=== PATIENT | female | born 1935 | race Caucasian/White ===

== ENCOUNTER → 2016-12-28 | Outpatient (CLI) | payer OTHER ==
[~2016-12-28] MED LIST: KFL/250 PO; PRMUNK
[2016-12-28 13:29] LABS: BASO % 0.5 %; BASO ABS # 0.03 K/uL (0-0.2); COMPLETE YES; EOS % 1.4 %; HEMATOCRIT 41.1 % (37-47); IG% 0.2 %; LYMPH % 22.4 %; LYMPH ABS # 1.49 K/uL (1.2-3.4); MEAN CELL VOLUME 90.9 fL (80-100); MEAN CORPUSCULAR HEMOGLOBIN 31.6 pg (25-34); MEAN CORPUSCULAR HGB CONC 34.8 g/dl (32-36); MEAN PLATELET VOLUME 10.1 fL (7.4-10.4); MONO % 7.2 %; NEUT % 68.3 %; PLATELET COUNT 255 K/uL (130-400); RED BLOOD COUNT 4.52 M/uL (4.2-5.4); WHITE BLOOD COUNT 6.64 K/uL (4.8-10.8)
[2016-12-28 13:54] LABS: ALT/SGPT 25 U/L (12-78); AST/SGOT 21 U/L (15-37); BLOOD UREA NITROGEN 14 mg/dl (7-18); BUN/CREATININE RATIO 16.5 (10-20); CALCIUM 9.4 mg/dl (8.5-10.1); CARBON DIOXIDE 28 mmol/L (21-32); CHLORIDE 104 mmol/L (98-107); CREATININE 0.87 mg/dl (0.60-1.20); GLUCOSE 94 mg/dl (70-99); MAGNESIUM 2.3 mg/dl (1.8-2.4); POTASSIUM 4.6 mmol/L (3.5-5.1); SODIUM 139 mmol/L (136-145)
[2016-12-28 14:06] LABS: ALKALINE PHOSPHATASE 94 U/L (45-117)
== END | disposition home or self-care (01) ==
LOC: C.LABSPEC 12:35
PROVIDERS: ATTEND Internal Medicine
DX: I10 Essential (primary) hypertension (principal); R07.9 Chest pain, unspecified; R00.2 Palpitations

== ENCOUNTER → 2016-12-30 | Outpatient (CLI) | payer OTHER ==
--- NOTE | 2016-12-30 14:51 | EXERCISE STRESS ECHO ---
*NOTICE TO RECEIVING REPUBLICAN AGENCY This information is strictly Confidential and protected under [place] law. [place] law prohibits you from making any further disclosure of this information unless further disclosure is expressly permitted by the written consent of the person to whom it pertains or is authorized by law. A general authorization for the release of medical or other information is not sufficient for this purpose. Hospital accepts no responsibility if the information is made available to any other person, INCLUDING THE PATIENT. Interpretation Summary * Name: SANDRA RYAN Study Date: 12/30/2016 09:23 AM BP: 199/89 mmHg * Patient Location: [facility] HR: 56 * : 1935 (M/d/yyyy) Gender: Female Height: 61 in * Age: 81 yrs Ethnicity: [place] Weight: 124 lb * Referring Physician: LEÓN CARDOZA * Performed By: Meron Santiago RDCS * * Reason For Study: CHEST PAIN * BSA: 1.5 m2 * History: CHEST PAIN * The stress echocardiogram is negative for inducible ischemia. * The stress ECG response was normal * _ workload achieved. * Stress wall motion was normal. * -- Conclusions -- * 1. Negative stress echocardiogram at 84% MPHR. * 2. Negative ECG portion of exercise treadmill test. Baseline ECG was normal sinus rhythm with RBBBB. * 3. Appropriate HR and hypertensive BP response to exercise (resting BP 199/89, peak BP 234/82). * 4. No dysrhythmias. * 5. No symptoms. * 6. Poor exercise tolerance. NYHA Functional Class III. 4 MET workload. * 7. Resting echo with low normal systolic function, no regional wall motion abnormalities, and minor valvular regurgitation. Procedure Details * ECHOEX, CPT #71220 Left Ventricle * The left ventricle is normal in size. * There is normal left ventricular wall thickness. * Ejection Fraction = 50-55%. * Left ventricular systolic function is low normal. * There is borderline global hypokinesis of the left ventricle. * The left ventricular ejection fraction increases normally with stress. The left ventricular end-systolic cavity size reduces post-stress (normal response). The left ventricular wall motion with stress is normal. Right Ventricle * The right ventricle is normal in size and function. Atria * The left atrial size is normal. * Right atrial size is normal. * The interatrial septum is intact with no evidence for an atrial septal defect. Mitral Valve * The mitral valve is normal in structure and function. * There is mild mitral regurgitation. Tricuspid Valve * The tricuspid valve is normal in structure and function. * There is mild tricuspid regurgitation. * Right ventricular systolic pressure is normal. Aortic Valve * The aortic valve is normal in structure and function. * No aortic regurgitation is present. Pulmonic Valve * The pulmonic valve is not well seen, but is grossly normal. * Trace pulmonic valvular regurgitation. Great Vessels * The aortic root is normal size. * No obvious dissection could be visualized. * The pulmonary artery is normal size. Pericardium * There is no pericardial effusion. Stress Parameters * Rest heart rate was '56' BPM. * Rest blood pressure was '199/89' * Maximum heart rate achieved was 116 bpm. * Maximum heart rate was 84 % of maximum age-predicted heart rate. * Maximum blood pressure was '234/82' * Total exercise time was '2:31' * Maximum exercise MET level achieved was '4.60' METS * Maximum treadmill speed was '1.7' miles per hour. * Maximum treadmill elevation was '10.0'% grade. * Exercise was terminated due to 'FATIGUE' Left Ventricular Diastolic Function * Grade I diastolic dysfunction, (abnormal relaxation pattern). MMode 2D Measurements and Calculations IVSd 0.90 cm IVSs 1.3 cm LVIDd 4.5 cm LVIDs 3.2 cm LVPWd 0.96 cm LVPWs 1.6 cm IVS/LVPW 0.94 FS 29.0 % EDV(Teich) 94.1 ml ESV(Teich) 41.6 ml EF(Teich) 55.8 % EDV(cubed) 93.2 ml ESV(cubed) 33.4 ml EF(cubed) 64.1 % % IVS thick 43.7 % % LVPW thick 61.1 % LV mass(C)d 141.3 grams LV mass(C)dI 91.7 grams/m\S\2 LV mass(C)s 159.1 grams LV mass(C)sI 103.2 grams/m\S\2 SV(Teich) 52.5 ml SI(Teich) 34.0 ml/m\S\2 SV(cubed) 59.8 ml SI(cubed) 38.8 ml/m\S\2 Ao root diam 2.9 cm Ao root area 6.5 cm\S\2 LA dimension 3.2 cm LA/Ao 1.1 LVAd ap4 19.7 cm\S\2 LVLd ap4 6.8 cm EDV(MOD-sp4) 48.4 ml EDV(sp4-el) 48.6 ml LVAs ap4 12.8 cm\S\2 LVLs ap4 6.2 cm ESV(MOD-sp4) 25.6 ml ESV(sp4-el) 22.7 ml EF(MOD-sp4) 47.1 % EF(sp4-el) 53.2 % LVAd ap2 21.7 cm\S\2 LVLd ap2 7.1 cm EDV(MOD-sp2) 56.2 ml EDV(sp2-el) 56.4 ml LVAs ap2 14.3 cm\S\2 LVLs ap2 6.2 cm ESV(MOD-sp2) 29.2 ml ESV(sp2-el) 28.0 ml EF(MOD-sp2) 48.0 % EF(sp2-el) 50.4 % LVLd %diff 4.0 % EDV(MOD-bp) 53.1 ml LVLs %diff 1.3 % ESV(MOD-bp) 27.6 ml EF(MOD-bp) 48.1 % SV(MOD-sp4) 22.8 ml SI(MOD-sp4) 14.8 ml/m\S\2 SV(MOD-sp2) 27.0 ml SI(MOD-sp2) 17.5 ml/m\S\2 SV(MOD-bp) 25.6 ml SI(MOD-bp) 16.6 ml/m\S\2 SV(sp4-el) 25.8 ml SI(sp4-el) 16.8 ml/m\S\2 SV(sp2-el) 28.4 ml SI(sp2-el) 18.4 ml/m\S\2 Doppler Measurements and Calculations MV E max leilani 64.7 cm/sec MV A max leilani 80.9 cm/sec MV E/A 0.80 MV dec time 0.18 sec Ao V2 max 131.9 cm/sec Ao max PG 7.0 mmHg Ao max PG (full) 5.2 mmHg LV V1 max PG 1.7 mmHg LV V1 max 66.1 cm/sec TR max leilani 225.6 cm/sec
== END | disposition home or self-care (01) ==
LOC: C.CPL 08:53
PROVIDERS: ATTEND Internal Medicine
DX: R07.9 Chest pain, unspecified (principal)

== ENCOUNTER → 2017-02-22 | Outpatient (CLI) | payer OTHER ==
[~2017-02-22] MED LIST changes: +OPTIRAY 320 IV PRN
--- NOTE | 2017-02-22 13:59 | DIAGNOSTIC IMAGING REPORT ---
CT SOFT TISSUE NECK COMBO CT DOSE: 808.42 mGy.cm CLINICAL HISTORY: K11.20 Sialoadenitis TECHNIQUE: Unenhanced images were obtained through the duct. The study was then repeated in a dynamic helical fashion during intravenous administration of 119 cc Optiray 320. COMPARISON STUDY: May 2009 FINDINGS: Extra-axial calcifications in the right frontal region, are likely benign. 2 calculi are visualized within the right submandibular duct measuring 12 mm and 3 mm respectively. Postcontrast images reveal no orbital masses. There is mild mucosal thickening within the sphenoid. No parotid gland masses are visualized. There is right-sided mandibular gland hyperemia and edema, consistent with a sialoadenitis. The lung apices are unremarkable in appearance. No thyroid gland masses are visualized. No mucosal space masses are visualized. There is no pathologic adenopathy. There are no fluid collections to indicate an abscess. IMPRESSION: 1. Right submandibular gland hyperemia and edema, consistent with a sialoadenitis 2. Right-sided submandibular duct calculi are visualized measuring 12 mm and 3 mm respectively Electronically signed by: Heraclio Kerr M.D. 02/22/2017 1:58 PM Dictated Date/Time: 02/22/2017 1:51 PM
== END | disposition home or self-care (01) ==
LOC: C.CTS 13:30
DX: K11.20 Sialoadenitis, unspecified (principal); K11.5 Sialolithiasis

== ENCOUNTER → 2017-04-05 | Outpatient (CLI) | payer OTHER ==
[~2017-04-05] MED LIST changes: +ALPR0.25 PO; +AMOX875T PO; +CHOL1000 PO; +CYAN10005 PO; +MULT-506 PO; -OPTIRAY 320 IV PRN; +PROB1TAB16 PO; +[UNRECOGNIZED DRUG - CODE] PO
[2017-04-05 11:57] LABS: BLOOD UREA NITROGEN 11 mg/dl (7-18); CREATININE 0.73 mg/dl (0.60-1.20)
== END | disposition home or self-care (01) ==
LOC: C.LAB 10:16
DX: R19.7 Diarrhea, unspecified (principal); K12.2 Cellulitis and abscess of mouth

== ENCOUNTER → 2017-04-07 | Outpatient (CLI) | payer OTHER ==
[2017-04-07 18:02] LABS: BASO % 0.6 %; BASO ABS # 0.04 K/uL (0-0.2); COMPLETE YES; EOS % 2.9 %; HEMATOCRIT 41.1 % (37-47); IG% 0.2 %; LYMPH % 21.5 %; LYMPH ABS # 1.34 K/uL (1.2-3.4); MEAN CELL VOLUME 90.3 fL (80-100); MEAN CORPUSCULAR HEMOGLOBIN 30.3 pg (25-34); MEAN CORPUSCULAR HGB CONC 33.6 g/dl (32-36); MEAN PLATELET VOLUME 9.1 fL (7.4-10.4); NEUT % 64.8 %; PLATELET COUNT 373 K/uL (130-400); RED BLOOD COUNT 4.55 M/uL (4.2-5.4); WHITE BLOOD COUNT 6.23 K/uL (4.8-10.8)
[2017-04-07 19:10] LABS: ALT/SGPT 22 U/L (12-78); AST/SGOT 19 U/L (15-37); BLOOD UREA NITROGEN 14 mg/dl (7-18); BUN/CREATININE RATIO 18.1 (10-20); CALCIUM 8.9 mg/dl (8.5-10.1); CARBON DIOXIDE 26 mmol/L (21-32); CHLORIDE 97 mmol/L (98-107); GLUCOSE 87 mg/dl (70-99); POTASSIUM 4.2 mmol/L (3.5-5.1); SODIUM 131 mmol/L (136-145)
[2017-04-07 19:21] LABS: ALB/GLOB RATIO 0.9 (0.9-2); ALKALINE PHOSPHATASE 86 U/L (45-117)
== END | disposition home or self-care (01) ==
LOC: C.LABSPEC 17:33
PROVIDERS: ATTEND Internal Medicine
DX: R53.83 Other fatigue (principal); R63.4 Abnormal weight loss

== ENCOUNTER → 2017-06-07 | Outpatient (CLI) | payer OTHER ==
[~2017-06-07] MED LIST changes: -ALPR0.25 PO; -AMOX875T PO; -CHOL1000 PO; -CYAN10005 PO; -MULT-506 PO; -PROB1TAB16 PO; -[UNRECOGNIZED DRUG - CODE] PO
[2017-06-07 14:01] LABS: CHOLESTEROL 218 mg/dl (0-200); CHOLESTEROL/HDL RATIO 3.1; HDL CHOLESTEROL 71 mg/dl; TRIGLYCERIDES 83 mg/dl (0-150); VERY LOW DENSITY LIPOPROT CALC 17 mg/dl
== END | disposition home or self-care (01) ==
LOC: C.LABSPEC 12:17
PROVIDERS: ATTEND Internal Medicine
DX: E78.5 Hyperlipidemia, unspecified (principal); E55.9 Vitamin D deficiency, unspecified

== ENCOUNTER → 2017-07-18 | Outpatient (CLI) | payer OTHER | END | disposition home or self-care (01) | LOC: C.LABSPEC 15:01 | PROVIDERS: ATTEND Internal Medicine | DX: Z12.11 Encounter for screening for malignant neoplasm of colon (principal) ==

== ENCOUNTER → 2017-09-18 | Outpatient (CLI) | payer OTHER ==
[~2017-09-18] MED LIST changes: +ALPR0.25 PO; +AMOX875T PO; +CHOL1000 PO; +CYAN10005 PO; +MULT-506 PO; +PROB1TAB16 PO; +[UNRECOGNIZED DRUG - CODE] PO
== END | disposition home or self-care (01) ==
LOC: C.LABSPEC 18:08
PROVIDERS: ATTEND Physician Assistant
DX: K11.5 Sialolithiasis (principal)

== ENCOUNTER → 2017-09-18 | Outpatient (CLI) | payer OTHER ==
[2017-09-18 16:39] LABS: BASO % 0.4 %; BASO ABS # 0.03 K/uL (0-0.2); COMPLETE YES; HEMATOCRIT 39.3 % (37-47); IG% 0.3 %; LYMPH % 20.3 %; LYMPH ABS # 1.61 K/uL (1.2-3.4); MEAN CELL VOLUME 90.8 fL (80-100); MEAN CORPUSCULAR HEMOGLOBIN 30.3 pg (25-34); MEAN CORPUSCULAR HGB CONC 33.3 g/dl (32-36); MEAN PLATELET VOLUME 9.4 fL (7.4-10.4); MONO % 6.3 %; NEUT % 70.7 %; PLATELET COUNT 264 K/uL (130-400); RED BLOOD COUNT 4.33 M/uL (4.2-5.4); WHITE BLOOD COUNT 7.95 K/uL (4.8-10.8)
[2017-09-18 16:53] LABS: PARTIAL THROMBOPLASTIN RATIO 1.1; PROTHROMBIN TIME (PATIENT) 10.7 SECONDS (9.0-12.0)
[2017-09-18 17:01] LABS: POTASSIUM 3.9 mmol/L (3.5-5.1)
== END | disposition home or self-care (01) ==
LOC: C.LAB 16:02
PROVIDERS: ATTEND Physician Assistant
DX: Z01.818 Encounter for other preprocedural examination (principal)

== ENCOUNTER → 2017-09-22 | Day surgery (SDC) | payer OTHER ==
[2017-09-20 07:39] VITALS: Ht 152.4 cm; Wt 54.5 kg
[~2017-09-22] VITALS: Ht 152.4 cm; Wt 54.5 kg
[~2017-09-22] MED LIST changes: +ATROPINE SULFATE 0.1 MG/ML 5ML SYR IV PRN; +CLINDAMYCIN 600 MG/54 ML D5W IV SCH; +CLINDAMYCIN 600MG IV SCH; +CLINDAMYCIN PO SCH; +DEXAMETHASONE SOD INJ 4 MG/ML VIAL ONE; +EpHEDrine SULFATE INJ 50 MG/ML AMP IV PRN; +EpHEDrine SULFATE INJ 50 MG/ML AMP ONE; +FENTANYL CITRATE INJ 50 MCG/1 ML 2 ML VIAL IV PRN; +FENTANYL CITRATE INJ 50 MCG/1 ML 2 ML VIAL ONE; +HYDROCODONE/APAP 2.5MG/108MG ELIX 5 ML UDP PO PRN; -KFL/250 PO; +LACTATED RINGER'S 1000ML 1,000 ML IV SCH; +LIDOCAINE HCL 2% 2 ML VIAL (20MG/ML) ONE; +LIDOCAINE/EPINEPHRINE 1% INJ 50 ML VIAL ONE; +MIDAZOLAM HCL 1 MG/ML 2ML VIAL ONE; +NURSING VERBAL MED ORDER ONE; +ONDANSETRON INJ 2 MG/ML 2 ML VIAL IV PRN; +ONDANSETRON INJ 2 MG/ML 2 ML VIAL ONE; -PRMUNK; +PROPOFOL IV EMULSION 10 MG/ML 20 ML VIAL IV ONE; +SODIUM CHLORIDE 0.9% PO SCH
--- NOTE | 2017-09-22 08:00 | History & Physical Bridge - SC ---
H&P Re-Evaluation Bridge Note: I have examined the patient, reviewed the History & Physical and in the interval since the performance of the History & Physical I have noted the following changes of clinical significance: No changes noted
--- NOTE | 2017-09-22 09:57 | [facility] Operative Report ---
Operative Report Operative Date Sep 22, 2017. Pre-Operative Diagnosis Sialoadenitis; Sialolithiasis of Submandibular Gland Post-Operative Diagnosis Same Procedure(s) Performed Right Submandibular Duct Stone Removal Surgeon Dr. Gudino Forest Engineer Surgeon(s) None Estimated Blood Loss 5 mL Findings 1. VERY LARGE EMBEDDED RIGHT SUBMANDIBULAR DUCT STONE IN THE MID-DUCT REGION WITH SURROUNDING INFLAMMATION AND FIBROSIS - ~1.2CM IN DIAMETER Specimens A. Right Submandibular Duct Stones I attest to the content of the Intraoperative Record and any orders documented therein. Any exceptions are noted below.
--- NOTE | 2017-09-22 10:00 | Discharge Instructions ---
Discharge Instructions Date of Service Sep 22, 2017. Admission Reason for Admission: Sialolithiasis Of Submandibular Gland Discharge Discharge Diagnosis / Problem: SAME Discharge Goals Goal(s): Therapeutic intervention Activity Recommendations Activity Limitations: as noted below LIGHT ACTIVITY FOR 72HRS; NO DRIVING WHILE ON NORCO . Current Hospital Diet Patient's current hospital diet: Regular Diet Discharge Diet Recommended Diet: Regular Diet Procedures Procedures Performed: Right Submandibular Duct Stone Removal Pending Studies Studies pending at discharge: no Medical Emergencies . Who to Call and When: Medical Emergencies: If at any time you feel your situation is an emergency, please call 911 immediately. . Non-Emergent Contact Non-Emergency issues call your: Surgeon . . "Provider Documentation" section prepared by Feliz Gudino. . VTE Core Measure Inpt VTE Proph given/why not?: SCD's
--- NOTE | 2017-09-22 10:26 | OPERATIVE REPORT ---
DATE OF OPERATION: 09/22/2017 PREOPERATIVE DIAGNOSES: 1. Right submandibular duct stone. 2. Right submandibular gland sialoadenitis. POSTOPERATIVE DIAGNOSES: 1. Right submandibular duct stone. 2. Right submandibular gland sialoadenitis. PROCEDURE: Right submandibular duct stone extraction via sialolithotomy. SURGEON: Dr. Feliz Gudino. ANESTHESIA: General endotracheal. ESTIMATED BLOOD LOSS: 5 mL. FINDINGS: Large approximately 1.2-cm right submandibular duct stone located in the mid portion of the duct with severe surrounding inflammation and fibrosis. SPECIMENS: Right submandibular duct stones for permanent pathological assessment. DRAINS: None. COMPLICATIONS: None. INDICATIONS FOR THE PROCEDURE: The patient is an 82-year-old female with a history of recurrent right submandibular gland sialoadenitis, who first saw me in January and was found to have right submandibular gland sialoadenitis, but also a right submandibular duct stone. A CT scan showed that there were 2 stones with one being approximately 1 cm and a smaller stone more proximal to the gland. I had highly recommended right submandibular duct stone extraction and possible marsupialization of the duct in January/February, but the patient refused surgery. She has had recurrent infections ever since and has been seen in our office numerous times. She is finally convinced that she needs something surgically done. The options including sialendoscopy versus right submandibular duct stone extraction versus right submandibular gland excision were discussed with the patient and she opted for right submandibular duct stone extraction and possible duct marsupialization. She presents for the above-mentioned procedure on an outpatient elective basis. DESCRIPTION OF PROCEDURE: After informed consent had been obtained from the patient, the patient was wheeled to the operating room and placed on the operating table in the supine position. Monitors were placed. After induction of general endotracheal anesthesia, the patient was prepped in the usual fashion for oral surgery. A bite block was placed into the right maxillary dentition and an old silk suture was placed into the dorsum of the tongue and used for retraction during the case. 1 mL of 1% lidocaine with 1:100,000 epinephrine was then used to inject the mucosa and submucosa overlying the right floor of mouth region. Lacrimal probes were used to dilate the right submandibular duct and an attempt to try to milk out the stone was undertaken after dilating from #[address] way up to a #8 lacrimal probe. Despite that, the stone could not be manually expressed. Therefore, a #7 lacrimal probe was placed into the right submandibular duct and a #15 scalpel was used to incise the mucosa and submucosa down to the level of the submandibular duct and a sialolithotomy was performed over the submandibular duct in the mid portion and the floor of mouth overlying the stone. Immediately, the anterior aspect of the stone was identified. Care was taken to try to remove the stone in 1 piece, but this was literally impossible as the stone was quite large, measuring approximately 1.2 cm in diameter and having a lot of surrounding inflammation and fibrosis given that it was there at least 7 months. It was therefore removed in a piecemeal fashion using a combination of otologic cup forceps and suction. Eventually all the stone was removed and the posterior half of this was removed in its entirety using a blunt right angle pick. After removal of the 1.2-cm stone, care was taken to look for other stones. There may have been some small stones more proximal that were milked out using glandular massage and suction. After removal of all the stone material, the right submandibular duct was cannulated with an 18-gauge catheter and irrigated with clindamycin antibiotic irrigation. This was done copiously. The decision was made not to perform a submandibular duct stone marsupialization given the severe surrounding inflammatory tissue. The submandibular duct was reapproximated carefully using several deep 4-0 chromic sutures. The floor of mouth mucosal incision was then closed with several simple interrupted 4-0 chromic sutures. This marked the end of the case. The patient tolerated the procedure well and there were no apparent complications. An orogastric tube was placed and the stomach was suctioned free of any stomach contents. All the instrumentation was removed from the patient. The patient was extubated and transferred to recovery room in stable condition. I attest to the content of the Intraoperative Record and any orders documented therein. Any exception s are noted below.
[2017-09-22 10:52] VITALS: TEMP 36.4
--- NOTE | 2017-09-22 11:01 | Anesthesiology Progress Note ---
Anesthesia Post Op Note Date & Time Sep 22, 2017 at 11:01 Vital Signs Pain Intensity: 0 Vital Signs Past 12 Hours Date Time Temp Pulse Resp B/P (MAP) Pulse Ox O2 Delivery O2 Flow Rate FiO2 09/22/17 10:41 94 14 149/96 (116) 98 09/22/17 10:41 36.4 94 14 09/22/17 10:37 176/69 (106) 09/22/17 10:36 94 19 165/127 (132) 94 09/22/17 10:36 95 19 09/22/17 10:31 96 20 183/68 (94) 97 09/22/17 10:31 96 20 09/22/17 10:30 Room Air 09/22/17 10:27 174/72 (101) 09/22/17 10:26 96 13 09/22/17 10:26 96 13 174/72 (101) 99 09/22/17 10:21 98 17 09/22/17 10:21 97 17 179/71 (96) 99 09/22/17 10:16 98 15 168/66 (92) 99 09/22/17 10:16 98 15 09/22/17 10:11 98 17 09/22/17 10:11 98 17 168/78 (106) 99 09/22/17 10:09 167/77 (122) 09/22/17 10:07 36.5 98 16 167/77 99 Diffusion Mask 5 09/22/17 07:02 36.8 81 18 175/75 (108) 95 Room Air Notes Mental Status: alert / awake / arousable, participated in evaluation Pt Amnestic to Procedure: Yes Nausea / Vomiting: adequately controlled Pain: adequately controlled Airway Patency, RR, SpO2: stable & adequate BP & HR: stable & adequate Hydration State: stable & adequate Anesthetic Complications: no major complications apparent
[2017-09-22 11:33] VITALS: BP 179/93; PULSE 89; O2SAT 96
== END | disposition home or self-care (01) ==
LOC: X.SURG 06:43
DX: K11.5 Sialolithiasis (principal); I10 Essential (primary) hypertension; H90.5 Unspecified sensorineural hearing loss; Z79.899 Other long term (current) drug therapy

== ENCOUNTER → 2018-03-01 | Outpatient (CLI) | payer OTHER ==
[~2018-03-01] MED LIST changes: -ATROPINE SULFATE 0.1 MG/ML 5ML SYR IV PRN; -CLINDAMYCIN 600 MG/54 ML D5W IV SCH; -CLINDAMYCIN 600MG IV SCH; -CLINDAMYCIN PO SCH; -DEXAMETHASONE SOD INJ 4 MG/ML VIAL ONE; -EpHEDrine SULFATE INJ 50 MG/ML AMP IV PRN; -EpHEDrine SULFATE INJ 50 MG/ML AMP ONE; -FENTANYL CITRATE INJ 50 MCG/1 ML 2 ML VIAL IV PRN; -FENTANYL CITRATE INJ 50 MCG/1 ML 2 ML VIAL ONE; -HYDROCODONE/APAP 2.5MG/108MG ELIX 5 ML UDP PO PRN; -LACTATED RINGER'S 1000ML 1,000 ML IV SCH; -LIDOCAINE HCL 2% 2 ML VIAL (20MG/ML) ONE; -LIDOCAINE/EPINEPHRINE 1% INJ 50 ML VIAL ONE; -MIDAZOLAM HCL 1 MG/ML 2ML VIAL ONE; -NURSING VERBAL MED ORDER ONE; -ONDANSETRON INJ 2 MG/ML 2 ML VIAL IV PRN; -ONDANSETRON INJ 2 MG/ML 2 ML VIAL ONE; -PROPOFOL IV EMULSION 10 MG/ML 20 ML VIAL IV ONE; -SODIUM CHLORIDE 0.9% PO SCH
[2018-03-01 17:41] LABS: BASO % 0.4 %; BASO ABS # 0.03 K/uL (0-0.2); EOS % 0.6 %; EOS ABS # 0.04 K/uL (0-0.5); HEMATOCRIT 39.5 % (37-47); HEMOGLOBIN 13.7 g/dL (12.0-16.0); IG# 0.01 K/uL (0.00-0.02); LYMPH % 18.7 %; LYMPH ABS # 1.31 K/uL (1.2-3.4); MEAN CELL VOLUME 90.2 fL (80-100); MEAN CORPUSCULAR HEMOGLOBIN 31.3 pg (25-34); MEAN CORPUSCULAR HGB CONC 34.7 g/dl (32-36); MEAN PLATELET VOLUME 9.5 fL (7.4-10.4); MONO % 8.2 %; MONO ABS # 0.57 K/uL (0.11-0.59); NEUT ABS # 5.03 K/uL (1.4-6.5); PLATELET COUNT 290 K/uL (130-400); RED CELL DISTRIBUTION WIDTH CV 13.7 % (11.5-14.5); RED CELL DISTRIBUTION WIDTH SD 45.2 fL (36.4-46.3); WHITE BLOOD COUNT 6.99 K/uL (4.8-10.8)
[2018-03-01 17:47] LABS: ALBUMIN 3.5 gm/dl (3.4-5.0); ALT/SGPT 22 U/L (12-78); BLOOD UREA NITROGEN 12 mg/dl (7-18); CALCIUM 8.9 mg/dl (8.5-10.1); CARBON DIOXIDE 26 mmol/L (21-32); CREATININE 0.81 mg/dl (0.60-1.20); GLUCOSE 92 mg/dl (70-99); POTASSIUM 4.3 mmol/L (3.5-5.1); SODIUM 132 mmol/L (136-145)
[2018-03-01 17:50] LABS: ALKALINE PHOSPHATASE 78 U/L (45-117); AST/SGOT 18 U/L (15-37); TOTAL PROTEIN 7.4 gm/dl (6.4-8.2)
== END | disposition home or self-care (01) ==
LOC: C.LABSPEC 16:40
PROVIDERS: ATTEND Internal Medicine
DX: R07.9 Chest pain, unspecified (principal); R13.10 Dysphagia, unspecified

== ENCOUNTER → 2018-03-05 | Outpatient (CLI) | payer OTHER ==
--- NOTE | 2018-03-05 11:04 | DIAGNOSTIC IMAGING REPORT ---
(BARIUM SWALLOW) ESOPHAGUS CLINICAL HISTORY: DYSPHAGIA COMPARISON STUDY: Neck CT 02/22/2017. FLUOROSCOPY TIME: 1.8 minutes. 26 images submitted. FINDINGS: Focal area of mild to moderate narrowing within the proximal esophagus best seen on image 1. This measures approximately 5 cm in length. The mid to distal esophagus is normal in course and caliber. Tiny hiatus hernia. No gastroesophageal reflux. The contours of the hypopharynx are within normal limits. The barium tablet passed without difficulty. 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 Endoscopy is recommended to exclude an esophageal mass versus benign stricture. These findings were called/faxed to the referring physician's office. Electronically signed by: Dion Guevara M.D. 03/05/2018 11:03 AM Dictated Date/Time: 03/05/2018 11:00 AM
== END | disposition home or self-care (01) ==
LOC: C.RAD 10:17
PROVIDERS: ATTEND Internal Medicine
DX: R13.10 Dysphagia, unspecified (principal)

== ENCOUNTER → 2018-07-03 | Outpatient (CLI) | payer OTHER | END | disposition home or self-care (01) | LOC: C.MAMM 14:06 | PROVIDERS: ATTEND Internal Medicine | DX: M85.88 Other specified disorders of bone density and structure, other site (principal) ==

== ENCOUNTER 2019-12-07 13:22 | Inpatient (IN) ==
[2019-12-07] MEDS ORDERED: ONDANSETRON INJ 2 MG/ML 2 ML VIAL IV STA (13:47)
[2019-12-07] MEDS ORDERED: SODIUM CHLORIDE 0.9% 500 ML IV SCH (14:00)
[2019-12-07 14:08] LABS: Basophils # (auto) 0.01 K/uL (0-0.2); Basophils % (auto) 0.1 %; Eosinophils # (auto) 0.08 K/uL (0-0.5); Eosinophils % (auto) 1.1 %; Immature Granulocytes # (auto) 0.01 K/uL (0.00-0.02); Immature Granulocytes % (auto) 0.1 %; Lymphocytes # (auto) 1.62 K/uL (1.2-3.4); Lymphocytes % (auto) 22.8 %; Mean Corpuscular Hgb Conc 35.9 g/dL (32-36); Mean Platelet Volume 9.7 fL (7.4-10.4); Monocytes # (auto) 0.66 K/uL (0.11-0.59); Monocytes % (auto) 9.3 %; Neutrophils # (auto) 4.72 K/uL (1.4-6.5); Neutrophils % (auto) 66.6 %; Platelet Count 284 K/uL (130-400); RDW Standard Deviation 42.3 fL (36.4-46.3); Red Blood Count 4.38 M/uL (4.2-5.4)
--- NOTE | 2019-12-07 14:17 | Emergency Department Note ---
Entered by James Joseph acting as a scribe for History of Present Illness General Chief complaint: Hypertension Stated complaint: ELEVATED BP, BLOATED ABDOMEN, TOP OF HEAD TIGHT Time Seen by Provider: 12/07/19 13:30 Source: patient Limitations: no limitations History of Present Illness Onset (ago): day(s) (today) Location: head Severity: similar to prior episodes Pain Consistency: + constant Maximum Pain Intensity: 4 Quality: + constant Associated symptoms: + denies other symptoms (burning with urination, blood in urine, numbness, ); no chest pain, no fever/chills (fevers) and no weakness The patient is a 84 year old female who presents to the Emergency Room with complaints of constant hypertension starting today. The patient's granddaughter notes the patient went to see her PCP two days ago and her PCP gave her anxiety and BP medications. The patient states she had a loose bowel movement today. She states she feels nauseous and lightheaded right now. She states she feels pressure in her head. She states she feels anxious all the time. The patient denies fevers, falls, chest pain, numbness, weakness, burning with urination, blood in urine, thyroid problems, and cardiac history. The patient notes her PCP is Dr. Billie Carroll. Home Medications Home Medications Medication Instructions Recorded Confirmed Type cholecalciferol (vitamin D3) 2,000 unit PO QAM 04/28/19 12/07/19 History [Vitamin D3] coenzyme Q10 [CoQ-10] 100 mg PO QAM 04/28/19 12/07/19 History cyanocobalamin (vitamin B-12) 1,000 mcg PO QAM 04/28/19 12/07/19 History [Vitamin B-12] metoprolol tartrate 25 mg PO BID 04/28/19 12/07/19 History multivitamin 1 tab PO QAM 04/28/19 12/07/19 History amlodipine 5 mg PO QAM 12/07/19 12/07/19 History Allergies Allergy/AdvReac Type Severity Reaction Status Date / Time No Known Allergies Allergy Verified 12/07/19 14:32 Past Med/Surg History Medical History Fall Hypertension Family History Other Family history non-contributory Social History Preferred Language: Frisian Feels Safe at Home: Yes Smoking Status: Never smoker Review of Systems See HPI for pertinent positives & negatives. and A total of 10 systems reviewed and were otherwise negative Physical Exam Vital Signs Vital Signs - 24 hr 12/07/19 13:24 12/07/19 15:22 Temperature 37.1 C Temperature Source Oral Pulse Rate 70 Pulse Rate [Apical] 73 Pulse Rhythm [Apical] Regular Pulse Strength [Apical] Normal Respiratory Rate 20 17 Respiratory Effort / Characteristics Non-Labored Spontaneous Non-Labored Spontaneous Respiratory Depth Normal Normal Respiratory Pattern Regular Regular Blood Pressure 199/88 H Blood Pressure [Right Arm] 157/128 H Blood Pressure Mean 125 Blood Pressure Mean [Right Arm] 137 Blood Pressure Position Sitting Pulse Oximetry 95 97 Oxygen Delivery Method Room Air Room Air Sepsis Recent Fever Within 48 Hours No Sepsis New/Unexplained Change in Mental Status No Sepsis Action Taken by Nursing No Action Required General: Mildly anxious appearing older female in no acute distress. HEENT: Normal cephalic atraumatic. Pupils are equal round and reactive to light. Extraocular movements are intact. Oropharynx is pink with moist mucous membranes. No swelling of the mouth lips or tongue. Neck: Supple with a midline trachea. No meningeal signs or stiffness, no JVD or bruits. No Stridor. Chest: Clear to auscultation bilaterally. No wheezes or rhonchi. No increased work of breathing. Heart: regular rate and rhythm. Abdomen: Soft nontender, nondistended without rebound guarding or rigidity. Extremities: No cyanosis clubbing or edema. No calf tenderness or asymmetry Spine/Back. Non tender to palpation. No CVA tenderness Skin: Good turgor without rashes. Neurologic exam: Cranial nerves two through 12 are intact. Motor and sensation are intact and symmetrical throughout. No tremor. Course Course 1332: The patient was evaluated in room A9B, and a complete history and physical examination were performed. 1504: I discussed the patient's case with Angel Clark PA-C. Dr. Kc - [facility] will evaluate the patient for further management. Administered Medications Discontinued Medications Sodium Chloride (Nss) 500 mls @ 999 mls/hr IV .Q31M DANNI Stop: 12/07/19 14:30 Last Admin: 12/07/19 14:10 Dose: 999 mls/hr Documented by: [id number] Ondansetron HCl (Zofran) 4 mg IV NOW STA Stop: 12/07/19 13:48 Last Admin: 12/07/19 14:10 Dose: 4 mg Documented by: [id number] Medical Decision Making Differential Diagnosis Differential Diagnosis includes but is not limited to anxiety, hypertension, cardiac disease, neurologic disease, and electrolyte or metabolic abnormality. Medical Records Attestation: I reviewed the patient's medical records. Home Medications Current Medication List: was personally reviewed by me Laboratory Data Attestation: I reviewed the patient's lab results. Result diagrams: 12/07/19 13:43 12/07/19 13:43 Lab Results 12/07/19 12/07/19 12/07/19 Range/Units 13:43 13:43 15:23 WBC 7.10 (4.8-10.8) K/uL RBC 4.38 (4.2-5.4) M/uL Hgb 14.0 (12.0-16.0) g/dL Hct 39.0 (37-47) % MCV 89.0 (80-100) fL MCH 32.0 (25-34) pg MCHC 35.9 (32-36) g/dL RDW Std Deviation 42.3 (36.4-46.3) fL RDW Coeff of Ej 13.0 (11.5-14.5) % Plt Count 284 (130-400) K/uL MPV 9.7 (7.4-10.4) fL Immature Gran % (Auto) 0.1 % Neut % (Auto) 66.6 % Lymph % (Auto) 22.8 % [place] % (Auto) 9.3 % Eos % (Auto) 1.1 % Baso % (Auto) 0.1 % Immature Gran # (Auto) 0.01 (0.00-0.02) K/uL Neut # (Auto) 4.72 (1.4-6.5) K/uL Lymph # (Auto) 1.62 (1.2-3.4) K/uL [place] # (Auto) 0.66 H (0.11-0.59) K/uL Eos # (Auto) 0.08 (0-0.5) K/uL Baso # (Auto) 0.01 (0-0.2) K/uL Sodium 127 L (136-145) mmol/L Potassium 4.1 (3.5-5.1) mmol/L Chloride 94 L (98-107) mmol/L Carbon Dioxide 27 (21-32) mmol/L Anion Gap 6.0 (3-11) BUN 10 (7-18) mg/dl Creatinine 0.81 (0.6-1.2) mg/dl Est Cr Clr Drug Dosing 40.4 ml/min Est GFR ( Amer) 76.8 Est GFR (Non-Af Amer) 66.2 BUN/Creatinine Ratio 12.4 (10-20) Glucose 117 H (70-99) mg/dl Calcium 9.0 (8.5-10.1) mg/dl Total Bilirubin 0.5 (0.2-1) mg/dl AST 25 (15-37) U/L ALT 24 (12-78) U/L Alkaline Phosphatase 91 (45-117) U/L Troponin I < 0.015 (0-0.045) ng/ml Total Protein 7.8 (6.4-8.2) gm/dl Albumin 3.5 (3.4-5.0) gm/dl Globulin 4.3 H (2.5-4.0) gm/dl Albumin/Globulin Ratio 0.8 L (0.9-2) TSH 1.960 (0.300-4.500) uIu/ml Urine Color Yellow Urine Appearance Clear (Clear) Urine pH 8.0 H (4.5-7.5) Ur Specific [place] 1.005 (1.000-1.030) Urine Protein Negative (Negative) Urine Glucose (UA) Negative (Negative) Urine Ketones Negative (Negative) Urine Blood Negative (Negative) Urine Nitrite Negative (Negative) Urine Bilirubin Negative (Negative) Urine Urobilinogen Negative (Negative) Ur Leukocyte Esterase Negative (Negative) Imaging Data Radiologist's Impression: Radiology results as stated below per my review and the radiologist's interpretation: XR chest 1V portable HISTORY: weakness COMPARISON: Chest 04/28/2019. FINDINGS: The heart remains mildly enlarged. No focal lung consolidations to suggest pneumonia. Possible 5 mm nodule within the right lower lobe. No evidence for pulmonary edema. No pleural effusions. No pneumothorax. IMPRESSION: 1. Stable mild cardiomegaly. 2. Possible 5 mm nodule within the right lower lobe. ACT 112: Negative or not required by law. Electronically signed by: Doin Guevara M.D. 12/07/2019 2:[address] CT DOSE: 537.48 mGy.cm HISTORY: dizziness TECHNIQUE: Multiaxial CT images of the head were performed without the use of intravenous contrast. Automated exposure control was utilized for this study. A dose lowering technique was utilized adhering to the principles of ALARA. Comparison: Head CT 04/28/2019. Findings: Trace fluid level within the right sphenoid sinus, unchanged. The mastoid air cells are clear. Faint calcifications within the basal ganglia and periventricular white matter remains unchanged. The calvarium and skull base are intact. There is no mass, hematoma, midline shift, acute infarct. White matter hypodensity is nonspecific but suggestive of microvascular ischemic change. The ventricles and sulci demonstrate mild age-related involutional changes. Impression: No significant change compared to the prior study. No acute intracranial abnormality. ACT 112: Negative or not required by law. Electronically signed by: Dion Guevara M.D. 12/07/2019 2:38 PM ECG Data Attestation: I personally reviewed and interpreted this ECG as follows: Indication: + weakness Rate (beats per minute): 70 Rhythm: + normal sinus ECG Intervals/blocks: + Right Bundle branch block ECG Purchase: + Normal ECG Findings: + PVCs Comparison ECG Date: from (No change when compared to old) Change: no significant change Blood Pressure Blood Pressure Findings: Elevated blood pressure Blood Pressure Disposition: further management by hospitalist [facility] Narrative This patient comes in as described above. She was placed in room A9. She is here for treatment and evaluation of hypertension. She has been also very anxi ous lately. She says she feels dizzy. She looks well on exam except for being somewhat anxious. She saw her regular doctor for this recently. IV access was established and blood work was obtained. I ordered EKG and multiple blood testing as well as a CAT scan of her head. She was reassessed frequently. Her blood pressure came down significantly without treatment and was in the 150s systolic. CAT scan of her head is unremarkable. EKG does not show any acute ischemic changes or ectopy. She has nothing to suggest infection or anemia. Her sodium came back low at 127. She is never been this low before and typically runs in the mid 130s. This could be causing some of her symptoms. María Elena olivier has been hydrated normal saline and I do think needs to be observed for further treatment and evaluation. I have consulted the [facility] hospitalist to see her in the ER for these measures. Impression & Plan Hyponatremia, Weakness, Nausea Discharge Plan Visit Data Chief Complaint: Hypertension Stated Complaint: ELEVATED BP, BLOATED ABDOMEN, TOP OF HEAD TIGHT ED Provider: Jair Contreras Discharge Problem: Hyponatremia, Weakness, Nausea Patient Disposition: Being Evaluated by Hospitalist Forms Stand Alone Forms: My [facility] Prescriptions Prescriptions: No Action multivitamin Tablet 1 tab PO QAM RF: 0 cyanocobalamin (vitamin B-12) [Vitamin B-12] 1,000 mcg Tablet 1,000 mcg PO QAM RF: 0 coenzyme Q10 [CoQ-10] 100 mg Capsule 100 mg PO QAM RF: 0 metoprolol tartrate 25 mg Tablet 25 mg PO BID RF: 0 cholecalciferol (vitamin D3) [Vitamin D3] 2,000 unit Capsule 2,000 unit PO QAM RF: 0 amlodipine 5 mg tablet 5 mg PO QAM RF: 0 Referrals Referrals: Rey Cleary MD [Primary Care Provider] - The scribe's documentation has been prepared under my direction and personally reviewed by me in its entirety. I confirm that the note above accurately reflects all work, treatment, procedures, and medical decision making performed by me.
[2019-12-07 14:24] LABS: Alanine Aminotransferase 24 U/L (12-78); Albumin Level 3.5 gm/dl (3.4-5.0); Aspartate Aminotransferase 25 U/L (15-37); BUN Creatinine Ratio 12.4 (10-20); Blood Urea Nitrogen 10 mg/dl (7-18); Carbon Dioxide 27 mmol/L (21-32); Chloride 94 mmol/L (98-107); Creatinine Clr Calc Pharmacy 40.4 ml/min; Est GFR (African American) 76.8; Est GFR (Non-African American) 66.2; Glucose 117 mg/dl (70-99); Potassium 4.1 mmol/L (3.5-5.1); Sodium 127 mmol/L (136-145)
[2019-12-07 14:35] LABS: Albumin Globulin Ratio 0.8 (0.9-2); Alkaline Phosphatase 91 U/L (45-117); Bilirubin,Total 0.5 mg/dl (0.2-1); Globulin 4.3 gm/dl (2.5-4.0); Total Protein 7.8 gm/dl (6.4-8.2); Troponin I < 0.015 ng/ml (0-0.045)
--- NOTE | 2019-12-07 14:39 | CT Scan Report ---
HEAD CT NONCONTRAST CT DOSE: 537.48 mGy.cm HISTORY: dizziness TECHNIQUE: Multiaxial CT images of the head were performed without the use of intravenous contrast. A utomated exposure control was utilized for this study. A dose lowering technique was utilized adheri ng to the principles of ALARA. Comparison: Head CT 04/28/2019. Findings: Trace fluid level within the right sphenoid sinus, unchanged. The mastoid air cells are anthony ar. Faint calcifications within the basal ganglia and periventricular white matter remains unchanged. The calvarium and skull base are intact. There is no mass, hematoma, midline shift, acute infarct. W gerson matter hypodensity is nonspecific but suggestive of microvascular ischemic change. The ventricle s and sulci demonstrate mild age-related involutional changes. Impression: No significant change compared to the prior study. No acute intracranial abnormality. ACT 112: Negative or not required by law. Electronically signed by: Dion Guevara M.D. 12/07/2019 2:38 PM
--- NOTE | 2019-12-07 14:50 | XRay Report ---
XR chest 1V portable HISTORY: weakness COMPARISON: Chest 04/28/2019. FINDINGS: The heart remains mildly enlarged. No focal lung consolidations to suggest pneumonia. Possi ble 5 mm nodule within the right lower lobe. No evidence for pulmonary edema. No pleural effusions. N o pneumothorax. IMPRESSION: 1. Stable mild cardiomegaly. 2. Possible 5 mm nodule within the right lower lobe. ACT 112: Negative or not required by law. Electronically signed by: Dion Guevara M.D. 12/07/2019 2:49 PM
[2019-12-07 15:35] LABS: Appearance Urine Clear (Clear); Bilirubin Urine Negative (Negative); Blood Urine Negative (Negative); Color Urine Yellow; Glucose Urine UA Negative (Negative); Ketones Urine Negative (Negative); Leukocyte Esterase Urine Negative (Negative); Nitrite Urine Negative (Negative); Protein Urine Negative (Negative); Specific Gravity Urine 1.005 (1.000-1.030); Urobilinogen Urine Negative (Negative)
--- NOTE | 2019-12-07 16:12 | History & Physical Report ---
Date of Service December 07, 2019 Assessment & Plan (1) Hypertension: BP runs high all the time. In Dr. Cleary's office, she reports it was 200/130 on , and he started her on amlodipine. She has only been on it for 2 days. In the ED, it was as high as 230/110, but came down on its own to 160/100. - Continue home meds - Hydralazine PRN for SBP > 190 or DBP > 110 - Anxiety control (2) Hyponatremia: Na seems to run slightly low. Last Na was in 05/2019 and was 132. Na was 127 on admission. Ddx includes low solute (tea and toast) vs. SIADH. - Given 500 mL normal saline in the ED. - Will get urine osms to help determine etiology - Fluid restrict for possible SIADH (3) Stomach pain: Reports some stomach pain and nausea. Time frame is unknown as she cannot recall if it is worse today or has been going on for several days/weeks. She reports she takes four baby aspirin every few days for arthritis, so gastritis is possible. - Start famotidine BID - Maalox PRN - Zofran PRN (4) Anxiety: Was on Xanax previously, but threw it away after a commercial scared her. - Ativan PRN - Consider SSRI or other anti-anxiety med as outpatient. Hyponatremia co mplicates this. (5) DVT prophylaxis: SCDs - Low DVT risk per admission calculator History of Present Illness Primary Care Provider: Rey Cleary MD 84yo F w/ hx of HTN and anxiety who presents for hypertensive urgency and abdominal pain. She reports she woke up with a "pounding" in her head. She called her PCP's office who told her to go the Emergency Department. She denies any lightheadedness, dizziness, syncope, or other concerning symptoms. She also notes some stomach pain that she is unsure if she has had today or longer. She denies any emesis. She had an episode of diarrhea earlier today after a normal BM. No blood or black stools. This was her only episode of diarrhea. Her daughter has some diarrhea, but this is chronic and relates to what sounds like IBS. No one else has been sick. She does not recall any new restaurants or other issues. She has a long-standing anxiety history. She used to have Xanax, but stopped it years ago. At Dr. Cleary's office, she had to take some "anxiety" medication to help calm her down and get her blood pressure lower. Allergies Allergy/AdvReac Type Severity Reaction Status Date / Time No Known Allergies Allergy Verified 12/07/19 14:32 Home Medications Home Medications Medication Instructions Recorded Confirmed Type cholecalciferol (vitamin D3) 2,000 unit PO QAM 04/28/19 12/07/19 History [Vitamin D3] coenzyme Q10 [CoQ-10] 100 mg PO QAM 04/28/19 12/07/19 History cyanocobalamin (vitamin B-12) 1,000 mcg PO QAM 04/28/19 12/07/19 History [Vitamin B-12] metoprolol tartrate 25 mg PO BID 04/28/19 12/07/19 History multivitamin 1 tab PO QAM 04/28/19 12/07/19 History amlodipine 5 mg PO QAM 12/07/19 12/07/19 History Past Med/Surg History Medical History (Updated 12/07/19 @ 17:37 by Tyron Kc MD) Anxiety Fall Hypertension Family History Daughter Fibromyalgia Social History Preferred Language: Hungarian Feels Safe at Home: Yes Smoking Status: Never smoker Review of Systems Review of Systems: All systems reviewed & are unremarkable except as noted in HPI & below Physical Exam Constitutional: WD/WN, vitals as above Eyes: EOM intact bilaterally; no conjunctival abnormality ENMT: external ear and nose normal, oropharynx normal Neck: trachea midline, no thyromegaly normal visual inspection Respiratory: normal respiratory effort, lungs clear to auscultation no respiratory distress Cardiovascular: RRR, no murmur, no edema Gastrointestinal (Abdomen): Inspection/Auscultation: abdomen normal to inspection; abdomen not distended Musculoskeletal: no cyanosis or clubbing, extremities motor strength 5/5 Skin: no rashes, warm and dry Neurologic: moves all extremities and awake Psychiatric: Orientation: alert, oriented to person and cooperative Results & Data Vital Signs (Past 12 Hours) Vital Signs Temp Pulse Pulse Resp BP BP Pulse Ox 12/07/19 15:22 73 17 157/128 H 97 12/07/19 13:47 96 12/07/19 13:24 37.1 C 70 20 199/88 H 95 Code Status & VTE Plan VTE Prophylaxis Plan VTE Prophylaxis will be ordered: Yes PG Care Time/CCT Total # of Minutes Spent Total Time Spent with Patient: Total time spent is greater than 50% in coordination of care (as documented) at patient's floor/unit and/or counseling patient:
[2019-12-07] MEDS ORDERED: ONDANSETRON INJ 2 MG/ML 2 ML VIAL IV PRN (18:47)
[2019-12-07] MEDS ORDERED: LORazepam 0.5 MG TAB PO PRN (18:47)
[2019-12-07] MEDS ORDERED: ALUMINUM/MAGNESIUM SUSP 30 ML UDC PO PRN (18:47)
[2019-12-07] MEDS ORDERED: ACETAMINOPHEN 325 MG TAB PO PRN (18:47)
[2019-12-07] MEDS ORDERED: HydrALAZINE HCL 20 MG/ML VIAL IV PRN (18:47)
[2019-12-07] MEDS: FAMOTIDINE 10 MG TABLET PO SCH (20:05)
[2019-12-07] MEDS: METOPROLOL TARTRATE 25 MG TAB PO SCH (22:00)
[2019-12-08 05:57] LABS: Hematocrit (blood only) 39.4 % (37-47); Hemoglobin 13.8 g/dL (12.0-16.0); Mean Corpuscular Hemoglobin 31.4 pg (25-34); Mean Corpuscular Volume 89.5 fL (80-100); Mean Platelet Volume 9.6 fL (7.4-10.4); Platelet Count 238 K/uL (130-400); RDW Coefficient of Variation 13.2 % (11.5-14.5); RDW Standard Deviation 43.3 fL (36.4-46.3); White Blood Count 5.53 K/uL (4.8-10.8)
--- NOTE | 2019-12-08 06:03 | Electrocardiogram Report ---
Test Reason : Blood Pressure : / mmHG Vent. Rate : 063 BPM Atrial Rate : 063 BPM P-R Int : 172 ms QRS Dur : 138 ms QT Int : 456 ms P-R-T Axes : 047 021 033 degrees QTc Int : 466 ms Sinus rhythm with occasional Premature ventricular complexes Right bundle branch block Abnormal ECG When compared with ECG of 28-APR-2019 20:41, Premature ventricular complexes are now Present Confirmed by Marky Murray ([id number]) on 12/08/2019 6:02:35 AM Referred By: REFERRED SELF Confirmed By:Marky Murray
[2019-12-08 06:32] LABS: BUN Creatinine Ratio 9.1 (10-20); Calcium 8.6 mg/dl (8.5-10.1); Creatinine Clr Calc Pharmacy 36.8 ml/min; Est GFR (African American) 69.4; Est GFR (Non-African American) 59.9; Magnesium 2.1 mg/dl (1.8-2.4); Potassium 3.5 mmol/L (3.5-5.1)
[2019-12-08 06:33] LABS: Phosphorus 2.9 mg/dl (2.5-4.9)
[2019-12-08] MEDS: METOPROLOL TARTRATE 25 MG TAB PO SCH (08:01)
[2019-12-08] MEDS: FAMOTIDINE 10 MG TABLET PO SCH (08:02)
[2019-12-08] MEDS ORDERED: AMLODIPINE BESYLATE 5 MG TAB PO SCH (09:00)
--- NOTE | 2019-12-08 16:02 | Discharge Summary ---
Date of Service December 08, 2019 Admission HPI Per Admitting Provider 84yo F w/ hx of HTN and anxiety who presents for hypertensive urgency and abdominal pain. She reports she woke up with a "pounding" in her head. She called her PCP's office who told her to go the Emergency Department. She denies any lightheadedness, dizziness, syncope, or other concerning symptoms. She also notes some stomach pain that she is unsure if she has had today or longer. She denies any emesis. She had an episode of diarrhea earlier today after a normal BM. No blood or black stools. This was her only episode of diarrhea. Her daughter has some diarrhea, but this is chronic and relates to what sounds like IBS. No one else has been sick. She does not recall any new restaurants or other issues. She has a long-standing anxiety history. She used to have Xanax, but stopped it years ago. At Dr. Cleray's office, she had to take some "anxiety" medication to help calm her down and get her blood pressure lower. Principal Diagnosis Hypertension & mild hyponatremia Discharge Exam Constitutional WD/WN, vitals as above Eyes EOM intact bilaterally; no conjunctival abnormality ENMT external ear and nose normal, oropharynx normal Neck trachea midline, no thyromegaly normal visual inspection Respiratory normal respiratory effort, lungs clear to auscultation no respiratory distress Cardiovascular RRR, no murmur, no edema Gastrointestinal (Abdomen) Inspection/Auscultation: abdomen normal to inspection; abdomen not distended Musculoskeletal no cyanosis or clubbing, extremities motor strength 5/5 Skin no rashes, warm and dry Neurologic moves all extremities and awake Psychiatric Orientation: alert, oriented to person and cooperative Discharge Data Allergies Allergy/AdvReac Type Severity Reaction Status Date / Time No Known Allergies Allergy Verified 12/07/19 14:32 Consultations 12/07/19 15:06 ED Decision to Admit Stat Ordered Studies 12/07/19 13:47 CT head/brain wo con Stat Hospital Course (1) Hypertension: BP runs high all the time. In Dr. Cleary's office, she reports it was 200/130 on , and he started her on amlodipine. She had only been on it for 2 days. In the ED, it was as high as 230/110, but came down on its own to 160/100. - Continue home meds - Anxiety control - By discharge, she was around 115/70. I think she just needs the amlodpine to fully kick in and to control her anxiety. (2) Hyponatremia: Na seems to run slightly low. Last Na was in 05/2019 and was 132. Na was 127 on admission. Ddx includes low solute (tea and toast) vs. SIADH. - Given 500 mL normal saline in the ED. - Urine osms seemed to indicate low solute (osms were only 150, so she's not really concentrating her urine much). Encouraged her to eat more protein and full meals to help her kidney concentrate urine more effective. Recheck Na next week with PCP. (3) Stomach pain: Reports some stomach pain and nausea. Time frame is unknown as she cannot recall if it is worse today or has been going on for several days/weeks. She reports she takes four baby aspirin every few days for arthritis, so gastritis is possible. - Started famotidine BID - Maalox PRN - Zofran PRN - No stomach pain on discharge. Encouraged to avoid taking larger doses of aspirin. (4) Anxiety: Was on Xanax previously, but threw it away after a commercial scared her. - Ativan PRN - Consider SSRI or other anti-anxiety med as outpatient. (5) DVT prophylaxis: SCDs - Low DVT risk per admission calculator Total Time Total Time Spent Total Time Spent (In Minutes): 35 Discharge Plan Discharge Items Patient Disposition: Home - Self-Care Reason For Visit: HYPERTENSION URGENCY Discharge Diagnosis: High blood pressure Activity: Resume your previous activity Non-emergency contact: Primary Care Provider Call non-emergency contact if: your symptoms worsen Follow-up/Referrals: Rey Cleary MD [Primary Care Provider] - Diet: Regular Addtl Attending Provider Instructions: You were admitted for high blood pressure and low sodium. 1) For your high blood pressure, it came down naturally on its own once your anxiety improved. The amlodipine that Dr. Cleary started takes a few days to kick in, so I also think this helped the blood pressure today. Keep taking your normal blood pressure medications and go to Dr. Cleary's office early this week for a BP check. 2) For your sodium, it came up on its own. This is likely from not getting enough in your system. Please make sure to eat plenty of protein-rich foods. Eggs, chicken, protein shakes, and other things like that help give your body the nutrition it needs to keep your sodium up. Please have Dr. Cleary check your sodium next week when you go in for your blood pressure check. 3) For your anxiety, I prescribed a few pills of a medication similar to Xanax. This is not an ideal long-term solution, and you should see Dr. Cleary for your anxiety as well. 4) For your stomach pain, it went away by the day of discharge. You mentioned you take aspirin for your aches and pains. Aspirin can be hard on your stomach. Please use Tylenol (acetaminophen) for arthritis and aches/pains. It is softer on your stomach. If you have stomach pain, please try Tums or Maalox or famotidine to help improve the pain. I sent a script for the famotidine to your pharmacy. Pending Studies at Discharge: No Stand-Alone Forms: My [facility], Smoking Cessation Medications and DC Order Prescriptions: New lorazepam 0.5 mg Tablet 0.25 mg PO DAILY PRN (Reason: anxiety) Qty: 5 RF: 0 famotidine [Acid [employer] (famotidine)] 10 mg Tablet 10 mg PO BID PRN (Reason: Acid Reflux) Qty: 30 RF: 0 Continued multivitamin Tablet 1 tab PO QAM RF: 0 cyanocobalamin (vitamin B-12) [Vitamin B-12] 1,000 mcg Tablet 1,000 mcg PO QAM RF: 0 coenzyme Q10 [CoQ-10] 100 mg Capsule 100 mg PO QAM RF: 0 metoprolol tartrate 25 mg Tablet 25 mg PO BID RF: 0 cholecalciferol (vitamin D3) [Vitamin D3] 2,000 unit Capsule 2,000 unit PO QAM RF: 0 amlodipine 5 mg tablet 5 mg PO QAM RF: 0 Discharge Orders: Discharge Order (Routine); Ordered 12/08/19 Ordered By: Tyron Kc Admission Data Admit Date/Time: 12/07/19 15:58 Attending Provider: Tyron Kc Admit Provider: Tyron Kc Primary Care Provider: Rey Cleary Other Providers: Tyron Kc Other Interventions: Discharge Summary Assessment (RN) Last Done: 12/08/19 09:59 DC Date/Time DO NOT enter until pt leaves facility: 12/08/19 10:41
== END 2019-12-08 10:41 | disposition home or self-care (01) | DRG 305 ==
LOC: ED 13:22 → 2N 15:58